=== PATIENT | male | born 1940 | race Caucasian/White ===

== ENCOUNTER 2020-11-25 22:17 | Emergency (ER) | payer MEDICARE, SELFPAY ==
--- NOTE | 2020-11-25 22:11 | ECG_ITS ---
APPROVED REPORT Exam: Resting ECG HR:108 bpm ECG Measurements Heart Rate 108 AXES QRSd 96 QRS -5 QT 364 T 56 QTc 487 Conclusion Atrial fibrillation with rapid ventricular response with premature ventricular or aberrantly conducted complexes Septal infarct, age undetermined Abnormal ECG Electronically signed by : Tomasz Mitchell, 11/27/2020 07:10:23
[2020-11-25 22:16] VITALS: BP 143/78; PULSE 74; RESP 18; TEMP 36.1; O2SAT 98; BMI 29.5
--- NOTE | 2020-11-25 22:22 | CT_ITS ---
PROCEDURE INFORMATION: Exam: CT Abdomen And Pelvis With Contrast Exam date and time: 11/25/2020 11:25 PM Age: 80 years old Clinical indication: Patient HX: Sudden onset of sternal chest pain, SOA, quad bypass 6 weeks ago TECHNIQUE: Imaging protocol: Computed tomography of the abdomen and pelvis with contrast. Radiation optimization: All CT scans at this facility use at least one of these dose optimization techniques: automated exposure control; mA and/or kV adjustment per patient size (includes targeted exams where dose is matched to clinical indication); or iterative reconstruction. Contrast material: ISO 370; Contrast volume: 70 ml; Contrast route: INTRAVENOUS (IV); COMPARISON: No relevant prior studies available. FINDINGS: Liver: Normal. No mass. Gallbladder and bile ducts: Gallbladder is absent. Pancreas: Normal. No ductal dilation. Spleen: Normal. No splenomegaly. Adrenal glands: There is a 2.3 cm right adrenal nodule. Kidneys and ureters: Tiny nonobstructing left renal calculus. Right renal upper pole scar with calcification. Stomach and bowel: Gastric wall thickening is nonspecific. Duodenal diverticula. Appendix: No evidence of appendicitis. Intraperitoneal space: Unremarkable. No free air. No significant fluid collection. Vasculature: Moderate atherosclerotic changes of the abdominal aorta and its branches. Lymph nodes: Unremarkable. No enlarged lymph nodes. Urinary bladder: Unremarkable as visualized. Reproductive: Marked prostate enlargement. Bones/joints: The lumbar spine demonstrates moderate degenerative changes at multiple levels. Soft tissues: There is a healed anterior abdominal wall incision. Other findings: Please see separate report for CT chest. IMPRESSION: 1. Gastric wall thickening is nonspecific. Please exclude gastritis clinically. 2. Tiny nonobstructing left renal calculus. 3. There is a 2.3 cm right adrenal nodule. Non-emergent adrenal CT is recommended. (Reference: Malcom) REFERENCES: Malcom MENON et al. Management of Incidental Adrenal Masses: A White Paper of the ACR Incidental Findings Committee. J Am Carlos Radiol. 2017;14(8):9117-7495.
--- NOTE | 2020-11-25 22:23 | XR_ITS ---
PROCEDURE INFORMATION: Exam: XR Chest Exam date and time: 11/25/2020 10:23 PM Age: 80 years old Clinical indication: Shortness of breath; Sternal or substernal pain; Prior surgery; Surgery date: 1-6 months; Patient HX: Sudden onset of sternal chest pain, SOA, quad bypass 6 weeks ago TECHNIQUE: Imaging protocol: XR of the chest. Views: 2 views. COMPARISON: No relevant prior studies available. FINDINGS: Lungs: Flat diaphragms may represent underlying emphysema. Bibasilar atelectasis. Pleural spaces: Unremarkable. No pleural effusion. No pneumothorax. Heart/Mediastinum: Heart is at the upper limits of normal in size. Vasculature: Vascular calcifications. Bones/joints: Status post median sternotomy. IMPRESSION: No acute findings.
--- NOTE | 2020-11-25 22:24 | CT_ITS ---
PROCEDURE INFORMATION: Exam: CTA Chest With Contrast Exam date and time: 11/25/2020 10:24 PM Age: 80 years old Clinical indication: Shortness of breath; Sternal or substernal pain; Prior surgery; Surgery date: 1-6 months; Patient HX: Sudden onset of sternal chest pain, SOA, quad bypass 6 weeks ago TECHNIQUE: Imaging protocol: Computed tomographic angiography of the chest with contrast. 3D rendering (Not supervised by radiologist): MIP and/or 3D reconstructed images were created by the technologist. Radiation optimization: All CT scans at this facility use at least one of these dose optimization techniques: automated exposure control; mA and/or kV adjustment per patient size (includes targeted exams where dose is matched to clinical indication); or iterative reconstruction. Contrast material: ISO 370; Contrast volume: 70 ml; Contrast route: INTRAVENOUS (IV); COMPARISON: CR XR CHEST 2V 11/25/2020 11:09 PM FINDINGS: Pulmonary arteries: No pulmonary emboli. Aorta: Moderate atherosclerotic changes of the aorta. No aortic dissection. Veins: Reflux of contrast into the hepatic veins suggests right heart dysfunction. Lungs: Mild peripheral scarring and posterior atelectasis in the lungs. There are 5 mm right lower lobe peripheral nodules image 50 and 51 series 5. Pleural spaces: Unremarkable. No pneumothorax. No pleural effusion. Heart: Mild anterior pericardial thickening and anterior mediastinal edema. Coronary artery disease. Lymph nodes: Unremarkable. No enlarged lymph nodes. Bones/joints: Status post median sternotomy. Degenerative changes at T6-7 produce moderate spinal canal stenosis. Soft tissues: Unremarkable. IMPRESSION: 1. No pulmonary emboli. 2. No aortic dissection. 3. Mild anterior pericardial thickening and anterior mediastinal edema. This is most likely postoperative inflammation or early scar tissue. Pericarditis is less likely, but possible in the appropriate clinical setting. 4. There are 5 mm right lower lobe peripheral nodules image 50 and 51 series 5. For patients at low risk (minimal or absent history of smoking and of other known risk factors), no routine follow-up is indicated. For patients at high risk (history of smoking or of other known risk factors), consider optional CT Chest at 12 months. (Reference: Lee) REFERENCES: Lee Mix, et al. Guidelines for Management of Incidental Pulmonary Nodules Detected on CT Images: From the Fleischner Society 2017. Radiology. 2017;284(1):228-243.
[2020-11-25 22:47] LABS: Basophils # 0.1 K/mm3 (0-0.2); Basophils % 0.8 % (0.1-2.0); Eosinophils # 1.9 K/mm3 (0.0-0.4); Eosinophils % 16.6 % (0.1-12.0); Hematocrit 37.5 % (42.0-52.0); Lymphocytes # 2.2 K/mm3 (0.7-4.5); Lymphocytes % 18.6 % (10-50); Mean Corpuscular HGB Conc 32.1 g/dL (31.8-35.4); Mean Corpuscular Hemoglobin 28.1 pg (27.0-31.2); Mean Corpuscular Volume 87.6 fl (80-94); Mean Platelet Volume 7.7 fl (7.4-10.4); Monocytes # 0.8 K/mm3 (0.1-1.0); Monocytes % 6.6 % (1.7-9.3); Neutrophils # 6.6 K/mm3 (1.8-7.8); Neutrophils % 57.4 % (37.0-80.0); Platelet Count 284 K/mm3 (142-424); Red Blood Count 4.28 M/mm3 (4.60-6.20); White Blood Count 11.6 K/mm3 (4.8-10.8)
[2020-11-25 22:50] VITALS: BP 156/92; PULSE 91; O2SAT 93
[2020-11-25 22:54] LABS: Alanine Aminotransferase 26 U/L (12-78); Albumin Level 4.6 g/dl (3.5-5.0); Albumin/Globulin Ratio 1.4 (1.1-1.8); Alkaline Phosphatase 191 U/L (38-126); Anion Gap 14.3 mEq/L (5-15); Aspartate Amino Transferase 40 U/L (17-59); Bilirubin,Direct 0.4 mg/dl (0.0-0.4); Bilirubin,Total 0.8 mg/dl (0.2-1.3); Blood Urea Nitrogen 16 mg/dl (9-20); Calcium 9.6 mg/dl (8.4-10.2); Carbon Dioxide 30 mmol/L (22.0-30.0); Chloride 100 mmol/L (98-107); Creatinine Clearance Estimated 55 mL/min (50-200); Estimated Glomerular Filt Rate 49 ml/min (>60); GFR (African American) 59 ML/MIN (>60); Globulin 3.2 g/dL (1.3-3.2); Glucose 133 mg/dl (74-100); Lipase 438 U/L (23-300); Potassium 3.3 mmoL/L (3.5-5.1); Sodium 141 mmol/L (136-145); Total Protein,Serum 7.8 g/dl (6.3-8.2)
[2020-11-25 22:58] LABS: INR 1.02 (0.9-1.1)
[2020-11-25 23:06] LABS: Troponin I < 0.01 ng/ml (0.00-0.034)
[2020-11-26] VITALS: BP 143/77; PULSE 85; O2SAT 93
--- NOTE | 2020-11-26 00:26 | [facility].EDCP ---
ED Disposition Clinical Impression: Elevated lipase, Hypokalemia, Incidental lung nodule, Adrenal incidentaloma Abdominal pain Qualifiers: Abdominal location: epigastric Qualified Code(s): R10.13 - Epigastric pain Disposition: Home, Self-Care Condition on Discharge: Good Instructions: DI for Pancreatitis Additional Instructions: Recommend a modest bland diet for the next few days with increased oral hydration and follow-up with your primary care in 2 to 3 days for repeat evaluation. Please return to the ED if you have any new or worsening symptoms. Prescriptions: Ondansetron [Zofran 4mg ODT] 4 mg PO TIDP PRN 3 Days #9 tab PRN Reason: Nausea Transmission Status: Pending to [id number] Referrals: Aylin Bronson MD [Primary Care Provider] - Time of Disposition: 02:19 - Critical Care Critical Care Time: No Attestation: On 11/25/20, the high probability of a clinically significant, sudden or life threatening deterioration of the following system(s) required my full and direct attention, intervention and personal management. The time I documented below is in addition to time spent performing reported procedures but includes the following listed in this critical care notation. Medical Decision Making - Medical Records Medical records reviewed: Yes: I reviewed the patient's medical records. - Isaias Inquiry Pt receiving controlled substance: No Vital Signs: 11/25/20 22:16 11/25/20 22:50 11/26/20 00:00 Temperature 97.0 F L Temperature Source Oral Pulse Rate 91 H 85 Pulse Rate [Right Brachial] 74 Respiratory Rate 18 Blood Pressure 156/92 H 143/77 H Blood Pressure [Right Arm] 143/78 H Blood Pressure Mean 102 Blood Pressure Mean [Right Arm] 99 Blood Pressure Source [Right Arm] Automatic Cuff Blood Pressure Position [Right Arm] Sitting 02 Sat by Pulse Oximetry 98 93 L 93 L Oxygen Delivery Method Room Air 11/26/20 00:30 Temperature Temperature Source Pulse Rate 90 Pulse Rate [Right Brachial] Respiratory Rate Blood Pressure 132/78 Blood Pressure [Right Arm] Blood Pressure Mean 87 Blood Pressure Mean [Right Arm] Blood Pressure Source [Right Arm] Blood Pressure Position [Right Arm] 02 Sat by Pulse Oximetry 93 L Oxygen Delivery Method - Lab Data Lab Results 11/25/20 22:30: WBC 11.6 H, RBC 4.28 L, Hgb 12.0 L, Hct 37.5 L, MCV 87.6, MCH 28.1, MCHC 32.1, RDW 15.0, Plt Count 284, MPV 7.7, Neut % (Auto) 57.4, Lymph % (Auto) 18.6, Wilson % (Auto) 6.6, Eos % (Auto) 16.6 H, Baso % (Auto) 0.8, Neut # (Auto) 6.6, Lymph # (Auto) 2.2, Wilson # (Auto) 0.8, Eos # (Auto) 1.9 H, Baso # (Auto) 0.1 11/25/20 22:30: PT 12.0, INR 1.02 11/25/20 22:30: Sodium 141, Potassium 3.3 L, Chloride 100, Carbon Dioxide 30, Anion Gap 14.3, BUN 16, Creatinine 1.40 H, Estimated Creat Clear 55, Estimated GFR 49 L, Est GFR ( Amer) 59, Glucose 133 H, Calcium 9.6, Total Bilirubin 0.8, Direct Bilirubin 0.4, AST 40, ALT 26, Alkaline Phosphatase 191 H, Troponin I < 0.01, Total Protein 7.8, Albumin 4.6, Globulin 3.2, Albumin/Globulin Ratio 1.4, Lipase 438 H 11/26/20 00:54: Troponin I < 0.01 Result diagrams: 11/25/20 22:30 11/25/20 22:30 Orders (Tests/Meds): ED MEDICATIONS Discontinued Medications Generic Name Dose Route Start Last Admin Trade Name Freq PRN Reason Stop Dose Admin Iopamidol 70 ml 11/25/20 23:55 11/25/20 23:56 Iopamidol-370 (76%);100ml Bottle IV 11/25/20 23:56 70 ml ONCE ONE Administration Potassium Chloride 40 meq 11/25/20 23:25 11/25/20 23:49 Potassium Chloride 20meq Tab PO 11/25/20 23:26 40 meq ONCE ONE Administration Sodium Chloride 50 ml 11/25/20 23:55 11/25/20 23:56 0.9 % Sodium Chloride 50 Ml Vial IV 11/25/20 23:56 50 ml ONCE ONE Administration Sodium Chloride 10 ml 11/25/20 23:55 11/25/20 23:56 Sodium Chloride 0.9% 10ml Syr (Rad Only) IV 11/25/20 23:56 10 ml ONCE ONE Administration ORDERS Category Date Time St
[2020-11-26 00:30] VITALS: BP 132/78; PULSE 90; O2SAT 93
[2020-11-26 01:00] VITALS: BP 132/78; PULSE 91; O2SAT 93
[2020-11-26 01:23] LABS: Troponin I < 0.01 ng/ml (0.00-0.034)
[2020-11-26 01:30] VITALS: BP 137/78; PULSE 93; O2SAT 94
[2020-11-26 02:31] VITALS: BP 155/82; PULSE 89; RESP 18; TEMP 36.6; O2SAT 94
== END 2020-11-26 02:34 | disposition home or self-care (01) ==
PROVIDERS: Emergency Provider Student in an Organized Health Care Education/Training Program; PCP Pediatrics
DX: R10.13 Epigastric pain (principal); E87.6 Hypokalemia; E27.8 Other specified disorders of adrenal gland; R74.8 Abnormal levels of other serum enzymes; I48.91 Unspecified atrial fibrillation; Z79.899 Other long term (current) drug therapy
CPT/HCPCS: 71046; 71275; 74177; 80053; 82248; 83690; 84484; 85025; 85610; 93005; 99283; Q9967

== ENCOUNTER 2020-12-15 09:56 | Outpatient (RCR) | payer MEDICARE, SELFPAY | END 2021-02-20 10:44 | disposition home or self-care (01) | LOC: PT 09:56 | PROVIDERS: Visit Provider Surgery | DX: Z95.1 Presence of aortocoronary bypass graft (principal) | CPT/HCPCS: 93798 ==